=== PATIENT | male | born 1950 | race Caucasian/White ===

== ENCOUNTER → 2017-12-23 | Outpatient (CLI) | payer OTHER ==
[~2017-12-23] MED LIST: ALBU90AE INH; ALBUTEROL PO; AMLO5TAB4 PO; AMLO5TAB7 PO; ASPI325T17 PO; ATOR40TA PO; BUDE0.5A INH; DEXL60CA2 PO; FLUT1AER INH; FLUT1DIS3 INH; HYDR25TA6 PO; LISI-170 PO; LISI1TAB7 PO; MULT-658 PO; NIAC1000 PO; OXYC5TAB3 PO; PIOG15TA22 PO; RANI150T4 PO; VENL150C PO; [UNRECOGNIZED DRUG - CODE] PO
[2017-12-23 10:00] LABS: BASOPHILS # (AUTO) 0.03 x10^3/uL (0-0.1); BASOPHILS % (AUTO) 0 % (0-1); EOSINOPHILS # (AUTO) 0.24 x10^3/uL (0-0.4); EOSINOPHILS % (AUTO) 3 % (1-7); LYMPHOCYTES # (AUTO) 2.09 x10^3/uL (1-3.4); LYMPHOCYTES % (AUTO) 22 % (22-44); MD NO; MEAN CORPUSCULAR HEMOGLOBIN 31.2 pg (27.5-34.5); MEAN CORPUSCULAR HGB CONC 34.5 g/dL (33.2-36.2); MEAN CORPUSCULAR VOLUME 90.2 fL (81-97); MEAN PLATELET VOLUME 7.3 fL (7.4-10.4); MONOCYTES # (AUTO) 0.75 x10^3/uL (0.2-0.8); MONOCYTES % (AUTO) 8 % (2-9); NEUTROPHILS # (AUTO) 6.52 x10^3/uL (1.8-6.8); NEUTROPHILS % (AUTO) 68 % (42-75); PLATELET COUNT 322 x10^3/uL (130-400); RED BLOOD COUNT 4.89 x10^6/uL (4.38-5.82); RED CELL DISTRIBUTION WIDTH 14.7 % (9.4-14.8)
[2017-12-23 10:04] LABS: CULTURE INDICATED? NO; MICROSCOPIC NOT IND
[2017-12-23 10:07] LABS: ALBUMIN 3.6 g/dL (3.4-5.0); ANION GAP 5 mmol/L (5-15); CALCIUM 8.4 mg/dL (8.5-10.1); CHLORIDE 107 mmol/L (98-107)
[2017-12-23 10:11] LABS: ALANINE AMINOTRANSFERASE 32 U/L (12-78); ALKALINE PHOSPHATASE 66 U/L (45-117); BILIRUBIN,TOTAL 0.3 mg/dL (0.2-1.0); CREATININE 0.93 mg/dL (0.7-1.3); TOTAL PROTEIN 7.2 g/dL (6.4-8.2)
== END | disposition home or self-care (01) ==
LOC: STAR 09:15
PROVIDERS: ATTEND Orthopaedic Surgery
DX: Z01.818 Encounter for other preprocedural examination (principal); M17.12 Unilateral primary osteoarthritis, left knee
CPT/HCPCS: 36415; 80053; 81003; 85025; 87081; 93005

== ENCOUNTER 2017-12-27 06:14 | Inpatient (IN) | payer OTHER ==
[~2017-12-27] VITALS: Ht 180.3 cm; Wt 88.2 kg
[~2017-12-27 06:14] MED LIST changes: -OXYC5TAB3 PO
[2017-12-27] MEDS ORDERED: LACTATED RINGERS 1,000 ML IV SCH (06:59)
[2017-12-27 07:24] VITALS: BP 144/94
[2017-12-27] MEDS ORDERED: ACETAMINOPHEN 500 MG TABLET PO ONE (07:30)
[2017-12-27] MEDS ORDERED: TAMSULOSIN 0.4 MG CAP.ER.24H PO ONE (07:30)
[2017-12-27] MEDS ORDERED: ONDANSETRON ODT 8 MG PO ONE (07:30)
[2017-12-27] MEDS ORDERED: GABAPENTIN 300 MG CAPSULE PO ONE (07:30)
[2017-12-27] MEDS ORDERED: FENTANYL PF 100 MCG/2ML ONE ×2 (08:17→11:10)
[2017-12-27] MEDS ORDERED: MIDAZOLAM 1 MG/ML, 2ML ONE (08:17)
[2017-12-27] MEDS ORDERED: ROPIvacaine/PF 0.2%, 20 ML ONE (08:52)
[2017-12-27] MEDS ORDERED: SODIUM CHLORIDE 0.9% 100 ML ONE (08:52)
[2017-12-27] MEDS ORDERED: EPINEPHRINE 1 MG/ML, 1ML ONE (08:52)
[2017-12-27] MEDS ORDERED: KETOROLAC 60 MG/2 ML ONE (08:52)
[2017-12-27] MEDS ORDERED: LABETALOL 5MG/ML, 20ML ONE (09:06)
[2017-12-27] MEDS ORDERED: TRANEXAMIC ACID 100 MG/ML, 10ML ONE (09:19)
[2017-12-27] MEDS ORDERED: PROPOFOL 50 ML ONE ×2 (09:38→09:44)
[2017-12-27] MEDS ORDERED: DEXAMETHASONE 4 MG/ML, 1ML ONE (09:58)
[2017-12-27] MEDS ORDERED: BUPIVACAINE/PF 0.5% ONE (09:58)
[2017-12-27] MEDS ORDERED: CEFAZOLIN 1,000 MG ONE (09:58)
[2017-12-27] MEDS ORDERED: PROPOFOL 10 MG/ML, 20ML ONE (09:58)
[2017-12-27] MEDS ORDERED: LIDOCAINE-MPF 2% ,5ML ONE (09:59)
[2017-12-27] MEDS ORDERED: ALBUTEROL/IPRATROPIUM 2.5MG/0.5MG, 3 ML NPPB PRN (10:30)
[2017-12-27] MEDS ORDERED: SCOPOLAMINE PATCH, 1.5MG PATCH.TD72 TD PRN (10:30)
[2017-12-27] MEDS ORDERED: HYDROmorphone 1 MG/ML, 1ML IV PRN ×2 (10:30→11:00)
[2017-12-27] MEDS ORDERED: ONDANSETRON 2MG/ML, 2ML IV PRN ×2 (10:30→11:00)
[2017-12-27] MEDS ORDERED: OXYcodone 5 MG/5 ML ORAL.SOL UDC PO PRN (10:30)
[2017-12-27] MEDS ORDERED: PROMETHAZINE 25 MG SUPP PR PRN (10:30)
[2017-12-27] MEDS ORDERED: hydrALAzine 20 MG/ML, 1ML IV PRN (10:30)
[2017-12-27] MEDS ORDERED: LABETALOL 5MG/ML, 20ML IV PRN (10:30)
[2017-12-27] MEDS ORDERED: MIDAZOLAM 1 MG/ML, 2ML IV PRN (10:30)
[2017-12-27] MEDS ORDERED: MEPERIDINE/PF 25MG/0.5ML IVPush PRN (10:30)
[2017-12-27] MEDS ORDERED: ZOLPIDEM 5MG TABLET PO PRN (11:00)
[2017-12-27] MEDS ORDERED: SENNA/DOCUSATE TABLET PO PRN (11:00)
[2017-12-27] MEDS ORDERED: PROMETHAZINE 12.5 MG SUPP PR PRN (11:00)
[2017-12-27] MEDS ORDERED: DIPHENHYDRAMINE 25 MG CAPSULE PO PRN (11:00)
[2017-12-27] MEDS ORDERED: PROMETHAZINE 25 MG/ML, 1ML IM PRN (11:00)
[2017-12-27] MEDS ORDERED: BISACODYL 10 MG SUPP PR PRN (11:00)
[2017-12-27] MEDS ORDERED: TRANEXAMIC ACID 1,000 MG in SODIUM CHLORIDE 0.9% 100 ML IVPB ONE (11:00)
[2017-12-27] MEDS ORDERED: ONDANSETRON 4 MG TABLET PO PRN (11:00)
[2017-12-27] MEDS ORDERED: ALUMINUM/MAG/SIMETHICONE 30 ML UDC PO PRN (11:00)
[2017-12-27] MEDS ORDERED: MAGNESIUM HYDROXIDE 8%, 30ML UDC PO PRN (11:00)
[2017-12-27] MEDS ORDERED: DIAZEPAM 5 MG TABLET PO PRN (11:00)
[2017-12-27] MEDS ORDERED: OXYcodone 5 MG/5 ML ORAL.SOL UDC ONE (11:06)
[2017-12-27] MEDS: FENTANYL PF 100 MCG/2ML IV PRN ×2 (11:10→11:30)
[2017-12-27] MEDS ORDERED: ALBUTEROL SULFATE 2.5 MG/3 ML HHN PRN (12:30)
[2017-12-27] MEDS: TAMSULOSIN 0.4 MG CAP.ER.24H PO SCH (13:00)
[2017-12-27 13:36] VITALS: BP 123/81
[2017-12-27] MEDS: SODIUM CHLORIDE 0.9% 1,000 ML IV SCH ×2 (14:18→22:30)
[2017-12-27] MEDS ORDERED: CEFAZOLIN PMX 2GM/50ML 50 ML IVPB SCH (16:00)
[2017-12-27] MEDS: CEFAZOLIN 2,000 MG in SODIUM CHLORIDE 0.9% 50 ML IVPB SCH (17:49)
[2017-12-27 19:54] VITALS: BP 146/88
[2017-12-27] MEDS: DOCUSATE 100 MG CAPSULE PO SCH (20:38)
[2017-12-27] MEDS: ASPIRIN 325 MG TABLET PO SCH (20:38)
[2017-12-27] MEDS ORDERED: VENLAFAXINE 75 MG CAP ER PO SCH (21:00)
[2017-12-27] MEDS ORDERED: ATORVASTATIN 40 MG TABLET PO SCH (21:00)
[2017-12-27] MEDS ORDERED: ASPIRIN 325 MG TABLET PO SCH (21:00)
[2017-12-27] MEDS: OXYcodone IR 5MG TABLET PO PRN (23:16)
[2017-12-28 00:10] VITALS: BP 122/82
[2017-12-28 03:35] VITALS: BP 136/81
[2017-12-28] MEDS: CEFAZOLIN 2,000 MG in SODIUM CHLORIDE 0.9% 50 ML IVPB SCH (03:56)
[2017-12-28] MEDS ORDERED: DEXAMETHASONE 4 MG/ML, 1ML IVPush SCH (06:00)
[2017-12-28] MEDS: SODIUM CHLORIDE 0.9% 1,000 ML IV SCH (06:18)
[2017-12-28 07:21] VITALS: BP 150/92
[2017-12-28] MEDS: ASPIRIN 325 MG TABLET PO SCH (08:10)
[2017-12-28] MEDS: OXYcodone IR 5MG TABLET PO PRN (08:10)
[2017-12-28] MEDS: DOCUSATE 100 MG CAPSULE PO SCH (08:11)
[2017-12-28] MEDS: TAMSULOSIN 0.4 MG CAP.ER.24H PO SCH (08:11)
[2017-12-28] MEDS ORDERED: HYDROCHLOROTHIAZIDE 25 MG TABLET PO SCH (09:00)
[2017-12-28] MEDS ORDERED: AMLODIPINE 5 MG TABLET PO SCH (09:00)
[2017-12-28] MEDS ORDERED: PIOGLITAZONE 15 MG TABLET PO SCH (09:00)
[2017-12-28] MEDS ORDERED: LISINOPRIL 20 MG TABLET PO SCH (09:00)
[2017-12-28] MEDS ORDERED: MULTIVITAMINS/MINERALS TABLET PO SCH (09:00)
[2017-12-28 10:30] VITALS: BP 140/89
[2017-12-28] MEDS ORDERED: KETOROLAC 30 MG/1 ML IV SCH (11:00)
[2017-12-28] MEDS ORDERED: OXYC5TAB3 PO (11:20)
== END 2017-12-28 11:50 | disposition home or self-care (01) | DRG 470 ==
LOC: OUT 06:14 → ORIP 10:38 → 4NOR 12:06 → DCLOUNGE 12-28 11:35
PROVIDERS: ADMIT Orthopaedic Surgery; ATTEND Orthopaedic Surgery
PROC: 3E0T3BZ Introduction of Anesthetic Agent into Peripheral Nerves and Plexi, Percutaneous Approach (ICD-10-PCS; 2017-12-27)
PROC: 0SRD069 Replacement of Left Knee Joint with Oxidized Zirconium on Polyethylene Synthetic Substitute, Cemented, Open Approach (ICD-10-PCS; principal; 2017-12-27 09:15)
DX: M17.12 Unilateral primary osteoarthritis, left knee (principal); E11.9 Type 2 diabetes mellitus without complications; E78.5 Hyperlipidemia, unspecified; I10 Essential (primary) hypertension; J45.909 Unspecified asthma, uncomplicated; F41.9 Anxiety disorder, unspecified; K21.9 Gastro-esophageal reflux disease without esophagitis
CPT/HCPCS: 36415; 85014; 85018; C1713; G0378; J0171; J0690; J1100; J1885; J2250; J2704; J2795; J3010; J3490; Q0162; C1776; J7030; J7120